=== PATIENT | male | born 1985 | race Caucasian/White ===

== ENCOUNTER 2017-10-12 10:07 | Emergency (ER) | payer BC ==
[~2017-10-12] VITALS: Ht 175.3 cm; Wt 121.7 kg
[2017-10-12 10:11] VITALS: BP 142/89
[2017-10-12] MEDS ORDERED: OMNIPAQUE 350 MG/ML, 75ML BOTTLE ONE (11:56)
== END 2017-10-12 12:46 | disposition home or self-care (01) ==
LOC: ED 12:02
DX: R20.2 Paresthesia of skin (principal)
CPT/HCPCS: 36415; 70470; 80329; 99285; Q9967; G0480